=== PATIENT | female | born 1945 | race African-American/Black ===

== ENCOUNTER 2020-03-11 11:01 | Observation (INO) ==
[2020-03-11 16:43] LABS: Basophils % 0.3 % (0.0-0.8); Eosinophils % 0.2 % (0.00-10.9); Hematocrit 37.4 VOL% (35.7-47.0); Hemoglobin 12.2 GM/DL (12.0-16.0); Immature Granulocytes % 0.5 %; Immature Granulocytes Absolute 0.03 #; Lymphocytes # 1.8 10*3/uL (1.4-4.0); Lymphocytes % 31.4 % (21.3-54.2); Mean Corpuscular HGB Conc 32.6 GM/DL (32-36); Mean Platelet Volume 11.4 FL (9.6-12.0); Neutrophils % 55.6 % (38.7-73.9); Platelet Count 123 T/CUMM (130-400); Red Blood Count 4.62 MC/CUMM (3.8-5.5); Red Cell Distribution Width 14.5 % (9.3-17.3); White Blood Count 5.8 T/CUMM (4-12)
[2020-03-11 16:51] LABS: PT Patient Result 10.5 SECS (9.8-11.9)
[2020-03-11 17:03] LABS: Alanine Aminotransferase 24 U/L (13-56); Albumin 3.1 G/DL (3.4-5.0); Alkaline Phosphatase 129 U/L (45-117); Aspartate Amino Transferase 26 U/L (0-37); Bilirubin,Total < 0.39 MG/DL (0.2-1.0); Blood Urea Nitrogen 14 MG/DL (7-18); Estimated Glom Filtration Rate 104 ML/MIN; Ferritin 115.2 ng/ml (8-252); Glucose 149 MG/DL (74-106); Total Protein 7.8 G/DL (6.4-8.3)
[2020-03-11] MEDS ORDERED: cefTRIAXone 1,000 MG in SODIUM CHLORIDE 0.9% 100 ML IV STA (17:24)
[2020-03-11] MEDS ORDERED: AZITHROMYCIN INJ 500 MG in SODIUM CHLORIDE 0.9% 250 ML IV STA (17:24)
[2020-03-11 18:24] LABS: Sedimentation Rate-Westergren 60 MM/HR (0-30)
[2020-03-11] MEDS ORDERED: CALCIUM CARBONATE CHEW 500 MG TABLET PO PRN (19:45)
[2020-03-11] MEDS ORDERED: ONDANSETRON 4 MG/2 ML VIAL IV PRN (19:45)
[2020-03-11] MEDS ORDERED: DEXTROSE 50% 25 GM/50 ML VIAL IV PRN (19:45)
[2020-03-11] MEDS ORDERED: ALBUTEROL/IPRATROPIUM 3 ML NEB RESP TX PRN (19:45)
[2020-03-11] MEDS ORDERED: GLUCAGON 1 MG VIAL IM PRN (19:45)
[2020-03-11] MEDS ORDERED: ENOXAPARIN 40 MG/0.4 ML SYRINGE SUBCUT SCH (21:00)
[2020-03-11] MEDS: INSULIN REGULAR 100 UNIT/ML SUBCUT SCH (22:55)
[2020-03-11] MEDS: FAMOTIDINE 20 MG TABLET PO SCH (22:56)
[2020-03-12] MEDS ORDERED: amLODIPine 10 MG TABLET PO ONE (01:18)
[2020-03-12 06:09] LABS: Basophils % 0.2 % (0.0-0.8); Eosinophils % 0.3 % (0.00-10.9); Hematocrit 36.2 VOL% (35.7-47.0); Hemoglobin 11.7 GM/DL (12.0-16.0); Immature Granulocytes % 0.5 %; Immature Granulocytes Absolute 0.03 #; Lymphocytes % 32.7 % (21.3-54.2); Mean Corpuscular HGB Conc 32.3 GM/DL (32-36); Mean Corpuscular Volume 83.2 FL (87-102); Mean Platelet Volume 11.7 FL (9.6-12.0); Neutrophils % 52.3 % (38.7-73.9); Platelet Count 111 T/CUMM (130-400); Red Blood Count 4.35 MC/CUMM (3.8-5.5); Red Cell Distribution Width 14.5 % (9.3-17.3)
[2020-03-12 06:36] LABS: Osmolality,Calculated 270.2 MOS/KG (273-304)
[2020-03-12] MEDS: INSULIN REGULAR 100 UNIT/ML SUBCUT SCH ×2 (08:25→12:34)
[2020-03-12 08:38] LABS: Band Neutrophils 16 % (0-10); Lymphocytes 37 % (20-55); Platelet Estimate Adequate; Segmented Neutrophils 36 % (50-85); Target Cells Few; Total Cells Counted 100
[2020-03-12 08:39] LABS: Anisocytosis 1+; Macrocytosis Slight
[2020-03-12] MEDS ORDERED: ACETAMINOPHEN 325 MG TABLET PO PRN (08:48)
[2020-03-12] MEDS ORDERED: amLODIPine 10 MG TABLET PO SCH (09:00)
[2020-03-12] MEDS ORDERED: CHOLECALCIFEROL 1,000 UNIT TABLET PO SCH (09:00)
[2020-03-12] MEDS ORDERED: ASCORBIC ACID 500 MG TABLET PO SCH (09:00)
[2020-03-12] MEDS ORDERED: ZINC SULFATE 220 MG CAPSULE PO SCH (09:00)
[2020-03-12] MEDS: FAMOTIDINE 20 MG TABLET PO SCH (09:15)
[2020-03-12] MEDS: LOSARTAN 50 MG TABLET PO SCH ×2 (09:15→15:22)
[2020-03-12 11:32] VITALS: BP 139/75
== END 2020-03-12 16:10 | disposition home health service (06) ==
LOC: N.ED 11:01 → N.EDINP 11:01 → N.2E 20:43
PROVIDERS: ADMIT Family Medicine; ATTEND Family Medicine